=== PATIENT | female | born 1970 | race Caucasian/White ===

== ENCOUNTER 2022-09-19 10:48 | Outpatient (CLI) | payer OTHER, SELFPAY | END 2022-09-19 10:49 | disposition home or self-care (01) | LOC: ANHBWCAUD 10:49 | DX: H93.13 Tinnitus, bilateral (principal); H90.3 Sensorineural hearing loss, bilateral | CPT/HCPCS: 92557; 92567 ==

== ENCOUNTER 2024-04-20 16:38 | Emergency (ER) | payer OTHER, SELFPAY ==
[2024-04-20 16:49] VITALS: BP 116/64; PULSE 78; RESP 16; TEMP 37.7; O2SAT 96
--- NOTE | 2024-04-20 16:53 | ED.URI ---
HPI - URI/Sore Throat General Chief Complaint: Upper Respiratory Infection Stated Complaint: Sore Throat/Ear Pain/Body Aches Time Seen by Provider: 04/20/24 17:20 Source: patient and RN notes reviewed Mode of arrival: ambulatory Limitations: no limitations History of Present Illness HPI Narrative: 54-year-old female presents with concern for sore throat, ear pain, body aches. She reports nausea. She reports she took at home nausea medicine today. MD elicited complaint: sore throat Related Data Home Medications Medication Instructions Recorded Confirmed ergocalciferol (vitamin D2) 1,250 See Rx Instructions .Route .COMPLEX 04/20/24 04/20/24 mcg (50,000 unit) capsule estradiol 0.075 mg/24 hr See Rx Instructions .Route .COMPLEX 04/20/24 04/20/24 semiweekly transdermal patch (Lyllana) hydrocodone 7.5 mg-acetaminophen See Rx Instructions .Route 04/20/24 04/20/24 325 mg tablet .COMPLEX PRN Pain Allergies Allergy/AdvReac Type Severity Reaction Status Date / Time No Known Allergies Allergy Verified 04/20/24 17:34 Review of Systems Review of Systems: CONSTITUTIONAL: Report malaise. Denies fever. EYES: Denies visual changes, redness, or discharge. ENT: Denies rhinorrhea, congestion, sinus pain. Reports otalgia, sore throat. CARDIOVASCULAR: Denies chest pain, palpitations, or edema. RESPIRATORY: Denies cough. Denies dyspnea. GASTROINTESTINAL: Denies abdominal pain, vomiting, diarrhea. Reports nausea SKIN: Denies rash or itching. MUSCULOSKELETAL: Reports myalgia. NEUROLOGIC: Denies headache. All systems reviewed & are unremarkable except as noted in HPI and below PMFSH Comments At time of signature, agree with nursing past medical, surgical, social and family history. There is no relevant family history pertinent to the presenting complaint Exam Narrative: GENERAL: Well-appearing, well-nourished, and in no acute distress. HEAD: Normocephalic EYES: PERRLA, conjunctivae clear ENT: Nares clear. Mucous membranes moist. TM pearly garcia with dull light reflex bilaterally; no tragal tenderness. Oropharynx erythematous without lesions. Tonsils enlarged and with exudate, no drooling, no hoarseness, no trismus, uvula midline. NECK: Supple. No lymphadenopathy CHEST: Clear to auscultation, breath sounds equal. No wheezing, rhonchi, rales, or stridor. No respiratory distress, speaks in full sentences. HEART: Regular rate and rhythm. No murmur heard. SKIN: Warm, dry, no rash. NEURO: Alert and oriented x3. PSYCH: Normal mood and affect Course Course Emergency Course: Patient is aware of diagnosis, understands and agrees to treatment plan. Anticipatory guidance given. Patient agrees to follow-up as directed and is aware of reasons to seek care at the emergency department. Portions of this record may have been created with voice recognition software Level of Care: Express Care Visit Vital Signs Vital signs: Vital Signs Temperature 99.8 F H 04/20/24 16:49 Pulse Rate 78 04/20/24 16:49 Respiratory Rate 16 04/20/24 16:49 Blood Pressure 116/64 04/20/24 16:49 Pulse Oximetry 96 04/20/24 16:49 Oxygen Delivery Room Air 04/20/24 16:49 Temperature 99.8 F H 04/20/24 16:49 Pulse Rate 78 04/20/24 16:49 Respiratory Rate 16 04/20/24 16:49 Blood Pressure 116/64 04/20/24 16:49 Pulse Oximetry 96 04/20/24 16:49 Oxygen Delivery Room Air 04/20/24 16:49 Reviewed. MDM - URI/Sore Throat MDM Narrative Medical decision making narrative: Differential diagnosis considered: Stock virus, strep pharyngitis, allergic rhinitis, upper respiratory tract infection, sinusitis, rhinosinusitis, nasopharyngitis. viral pharyngitis, otitis media, otitis externa, pneumonia, bronchitis, viral cough syndrome, viral syndrome, and influenza. Exam findings show no acute concerns or changes; patient is non-toxic appearing and is in no distress. Patient is appropriate for outpatient treatment and follow-up
[2024-04-20 17:30] LABS: EDSTREPNEGPOS1 Negative (Negative)
== END 2024-04-20 17:35 | disposition home or self-care (01) ==
PROVIDERS: Emergency Provider Nurse Practitioner; PCP Family Medicine
DX: J03.90 Acute tonsillitis, unspecified (principal)
CPT/HCPCS: 87081; 87880; 99213; G0463

== ENCOUNTER 2025-02-01 15:04 | Emergency (ER) | payer MEDICAID, SELFPAY ==
[2025-02-01 15:08] VITALS: BP 129/76; PULSE 71; RESP 18; TEMP 36.7; O2SAT 99
--- NOTE | 2025-02-01 15:20 | ED_ITS ---
HPI - URI/Sore Throat General Chief Complaint: Upper Respiratory Infection Stated Complaint: cough/runny nose Time Seen by Provider: 02/01/25 15:20 Source: patient Mode of arrival: ambulatory Limitations: no limitations History of Present Illness HPI Narrative: 54-year-old female presents with complaint nasal congestion, sinus pressure, coughing. Symptoms for 5-6 days. Reports some shortness breath with exertion. History of COPD. Has been using inhalers as prescribed. Afebrile. Taking [id number] cold and sinus medication. All systems reviewed and negative except as noted above. Related Data Home Medications ?Medication ?Instructions ?Recorded ?Confirmed ?Last Taken ?Type ergocalciferol (vitamin D2) 1,250 See Rx Instructions .Route .COMPLEX 04/20/24 04/20/24 Unknown History mcg (50,000 unit) capsule estradiol 0.075 mg/24 hr See Rx Instructions .Route .COMPLEX 04/20/24 04/20/24 Unknown History semiweekly transdermal patch (Lyllana) hydrocodone 7.5 mg-acetaminophen See Rx Instructions .Route 04/20/24 04/20/24 Unknown History 325 mg tablet .COMPLEX PRN Pain albuterol sulfate 90 mcg/actuation inhalation 02/01/25 Unknown History aerosol inhaler buspirone 5 mg tablet mg 02/01/25 Unknown History cyanocobalamin (vitamin B-12) 500 mcg 02/01/25 Unknown History mcg tablet hydroxyzine HCl 25 mg tablet mg 02/01/25 Unknown History Allergies Allergy/AdvReac Type Severity Reaction Status Date / Time No Known Allergies Allergy Verified 02/01/25 15:15 Review of Systems Review of Systems: CONSTITUTIONAL: Denies fever, chills, or sweats. EYES: Denies visual changes, redness, or discharge. ENT: Reports rhinorrhea, congestion, sinus pressure. Denies sore throat, or otalgia. CARDIOVASCULAR: Denies chest pain, palpitations, or edema. RESPIRATORY: reports cough and dyspnea with exertion. GASTROINTESTINAL: Denies abdominal pain, nausea, vomiting, or diarrhea. GENITOURINARY: Denies dysuria or hematuria. SKIN: Denies rash or itching. MUSCULOSKELETAL: Denies back pain, joint pain, or myalgia. NEUROLOGIC: Denies headache, numbness, or weakness. PSYCHIATRIC: Denies anxiety or depression. All other systems reviewed are negative, except as documented in HPI. PMFSH Comments At time of signature, agree with nursing past medical, surgical, social and family history. There is no relevant family history pertinent to the presenting complaint. Exam Narrative: GENERAL: This is a well-nourished, well-developed patient, ill-appearing but no acute distress HEAD: normocephalic, atraumatic. EYES: PERRL. Sclera clear/white. Vision is grossly intact. EARS: External ears normal, auditory canals clear and without drainage, TMs normal without perforation. Hearing grossly intact. NOSE: External nose normal nasal drainage, nasal congestion THROAT: Mucous membranes moist, posterior pharynx clear. NECK: Neck supple, non-tender without lymphadenopathy, masses or thyromegaly. CARDIOVASCULAR: Regular rate and rhythm without murmurs, gallops, or rubs. RESPIRATORY: Clear to auscultation. Breath sounds equal bilaterally. No wheezes, rales, or rhonchi. SKIN: warm, Dry, intact with no suspicious lesions or rash, good texture and turgor. NEURO: awake, alert, and oriented to person, place and time. There were no obvious focal neurologic abnormalities. EXTREMITIES: No joint tenderness, effusion, or edema noted. Course Course Level of Care: Express Care Visit Vital Signs Vital signs: Vital Signs Temperature 36.7 C 02/01/25 15:08 Pulse Rate 71 02/01/25 15:08 Respiratory Rate 18 02/01/25 15:08 Blood Pressure 129/76 02/01/25 15:08 Pulse Oximetry 99 02/01/25 15:08 Oxygen Delivery Room Air 02/01/25 15:08 Temperature 36.7 C 02/01/25 15:08 Pulse Rate 71 02/01/25 15:08 Respiratory Rate 18 02/01/25 15:08 Blood Pressure 129/76 02/01/25 15:08 Pulse Oximetry 99 02/01/25 15:08 Oxygen Delivery Room Air 02/01/25 15:08 reviewed MDM - URI/Sore Throat MDM Narrative Medical decision making narrative: will treat patient with antibiotics as precaution due to history of COPD. Lungs clear to auscultation. No respiratory distress. Sinus symptoms for 6 days. Recommend she purchase [id number] pseudoephedrine. Alert, nontoxic. Differential Diagnosis Differential diagnosis: Likely upper respiratory infection, sinusitis and viral infection Discharge Plan Discharge Clinical Impression: Acute sinusitis Patient Disposition: Home Condition: Stable Instructions: Antibiotic Form, Sinusitis (ED) Additional Instructions: take medications as prescribed. Purchase [id number] pseudoephedrine. This medication is found behind the pharmacy counter. Drink at least 64 oz of water a day. See your doctor if symptoms are not improving. Patient Language: Japanese Prescriptions: New doxycycline hyclate 100 mg capsule 100 mg PO BID 7 Days Qty: 14 0RF benzonatate 200 mg capsule 200 mg PO TID PRN (Reason: cough) Qty: 20 0RF prednisone 20 mg tablet 40 mg PO DAILY 5 Days Qty: 10 0RF No Action estradiol [Lyllana] 0.075 mg/24 hr patch semiweekly See Rx Instructions .ROUTE .COMPLEX Rx Instructions: as prescribed hydrocodone-acetaminophen 7.5-325 mg tablet See Rx Instructions .ROUTE .COMPLEX PRN (Reason: Pain) Rx Instructions: as prescribed prn ergocalciferol (vitamin D2) 1,250 mcg (50,000 unit) capsule See Rx Instructions .ROUTE .COMPLEX Rx Instructions: as prescribed buspirone 5 mg tablet cyanocobalamin (vitamin B-12) 500 mcg tablet hydroxyzine HCl 25 mg tablet albuterol sulfate 90 mcg/actuation HFA aerosol inhaler INHALATION Follow-up/Referrals: Melissa,Arian Duff MD [Primary Care Provider] - Time of Disposition: 15:24
== END 2025-02-01 15:30 | disposition home or self-care (01) ==
PROVIDERS: Emergency Provider Nurse Practitioner Family; PCP Family Medicine
DX: J01.90 Acute sinusitis, unspecified (principal); Z79.899 Other long term (current) drug therapy
CPT/HCPCS: 99213; G0463